=== PATIENT | female | born 1990 | race Caucasian/White ===

== ENCOUNTER 2022-02-26 09:13 | Emergency (ER) | payer SELFPAY ==
[2022-02-26] VITALS (16 sets, daily range): BP systolic 108–130; BP diastolic 60–83; PULSE 70–109; RESP 16–19; TEMP 36.7–39.3; O2SAT 95–99; BMI 25.1
[2022-02-26 09:45] LABS: Apearance,Urine Cloudy (Clear); Bilirubin,Urine Negative (Negative); Blood, Urine Trace (Negative); Color,Urine Dark Yellow (Yellow); Glucose,Urine (UA) Negative (Negative); Ketones,Urine Negative (Negative); Protein,Urine Trace (Negative)
[2022-02-26 09:46] LABS: UTC Leukocyte Esterase,Urine 3+ (Negative); UTC Nitrate,Urine Positive (Negative); Urobilinogen,Urine 0.2 EU/dl (0.2)
--- NOTE | 2022-02-26 09:51 | HMH.EDUTC ---
[facility] [place] Clinical Impression: Flank pain Disposition: Xfer Short-Term Hosp Condition on Discharge: Fair Instructions: DI for Urinary Tract Infection (UTI), DI for Urinary Tract Infection in Children Referrals: Provider,Referral, [Primary Care Provider] - Forms: Transfer Record - ED Time of Disposition: 09:57 Medical Decision Making - Davide Inquiry Pt receiving controlled substance: No Davide was queried for this patient: No Vital Signs: 02/26/22 09:13 02/26/22 10:22 02/26/22 10:30 Temperature 98.7 F 98.5 F Temperature Source Oral Oral Pulse Rate 79 Pulse Rate [Radial] 78 73 Respiratory Rate 19 16 Blood Pressure 123/77 Blood Pressure [Right Arm] 114/78 121/76 Blood Pressure Mean 93 Blood Pressure Mean [Right Arm] 90 91 Blood Pressure Source [Right Arm] Automatic Cuff Automatic Cuff Blood Pressure Position [Right Arm] Sitting 02 Sat by Pulse Oximetry 99 98 97 Oxygen Delivery Method Room Air Room Air 02/26/22 11:00 02/26/22 11:30 02/26/22 12:00 Temperature Temperature Source Pulse Rate 72 78 74 Pulse Rate [Radial] Respiratory Rate 17 Blood Pressure 112/70 110/67 117/72 Blood Pressure [Right Arm] Blood Pressure Mean 84 78 87 Blood Pressure Mean [Right Arm] Blood Pressure Source [Right Arm] Blood Pressure Position [Right Arm] 02 Sat by Pulse Oximetry 98 99 99 Oxygen Delivery Method 02/26/22 12:30 02/26/22 13:45 02/26/22 13:47 Temperature Temperature Source Pulse Rate 74 77 73 Pulse Rate [Radial] Respiratory Rate Blood Pressure 108/70 L 122/78 121/74 Blood Pressure [Right Arm] Blood Pressure Mean 80 96 Blood Pressure Mean [Right Arm] Blood Pressure Source [Right Arm] Blood Pressure Position [Right Arm] 02 Sat by Pulse Oximetry 99 98 97 Oxygen Delivery Method 02/26/22 15:08 02/26/22 16:09 02/26/22 16:30 Temperature 98.0 F 102.7 F H Temperature Source Oral Oral Pulse Rate 109 H 104 H Pulse Rate [Radial] Respiratory Rate 18 18 Blood Pressure 112/60 110/60 Blood Pressure [Right Arm] Blood Pressure Mean 72 72 Blood Pressure Mean [Right Arm] Blood Pressure Source [Right Arm] Blood Pressure Position [Right Arm] 02 Sat by Pulse Oximetry 95 96 Oxygen Delivery Method Room Air Room Air 02/26/22 17:00 02/26/22 17:30 02/26/22 18:00 Temperature 100.6 F H Temperature Source Oral Pulse Rate 104 H 104 H 94 H Pulse Rate [Radial] Respiratory Rate 18 Blood Pressure 109/64 L 130/65 127/72 Blood Pressure [Right Arm] Blood Pressure Mean 73 84 90 Blood Pressure Mean [Right Arm] Blood Pressure Source [Right Arm] Blood Pressure Position [Right Arm] 02 Sat by Pulse Oximetry 97 97 98 Oxygen Delivery Method Room Air Room Air 02/26/22 18:36 Temperature 100.1 F H Temperature Source Oral Pulse Rate 93 H Pulse Rate [Radial] Respiratory Rate 18 Blood Pressure 121/70 Blood Pressure [Right Arm] Blood Pressure Mean Blood Pressure Mean [Right Arm] Blood Pressure Source [Right Arm] Blood Pressure Position [Right Arm] 02 Sat by Pulse Oximetry Oxygen Delivery Method Room Air - Lab Data Lab Results 02/26/22 09:30: Urine HCG, Qual Negative 02/26/22 09:30: Urine Color Yellow, Urine Appearance Clear, Urine pH 6.5, Ur Specific [place] 1.020, Urine Protein Trace, Urine Glucose (UA) Negative, Urine Ketones Negative, Urine Blood Trace-i, Urine Nitrate Positive, Urine Bilirubin Negative, Urine Urobilinogen 0.2, Ur Leukocyte Esterase 3+ A, Urine RBC Occasional, Urine WBC Tntc, Ur Squamous Epith Cells 3-5, Urine Bacteria 4+, Urine Mucus Trace 02/26/22 09:38: Urine Color Dark yellow, Urine Appearance Cloudy, Urine pH 7.0, Ur Specific [place] 1.020, Urine Protein Trace, Urine Glucose (UA) Negative, Urine Ketones Negative, Urine Blood Trace, Urine Nitrate Positive A, Urine Bilirubin Negative, Urine Urobilinogen 0.2, Ur Leukocyte Esterase 3+ A 02/26/22 10:20: WBC 9.4, RBC 4.07 L, Hgb 11
--- NOTE | 2022-02-26 10:11 | CT_ITS ---
FINAL REPORT TECHNIQUE: Thin section axial images were obtained from the lung bases to the pubic symphysis without IV contrast. CLINICAL HISTORY: left flank pain, 6 weeks post FINDINGS: There are small, left greater than right pleural effusions. There is a lower lobe ground-glass opacity favored to be atelectasis although pneumonia is not excluded. The unenhanced liver is homogeneous. The gallbladder is present. The spleen, adrenal glands and pancreas are without acute abnormality. There is no hydronephrosis or renal stone in the right kidney. The left kidney is enlarged. There is left hydronephrosis and left perinephric stranding. There is air within the left renal collecting system concerning for gas producing infection. There is high density material at the left UPJ with an atypical appearance for stones, although a stone is not excluded. There is no evidence of small bowel obstruction. The appendix is normal. GI tract is without acute abnormality. There is no lymphadenopathy or ascites. The uterus is normal in size. There is no abnormal adnexal mass. No acute osseous abnormality is identified. IMPRESSION: Enlarged left kidney with hydronephrosis and left perinephric stranding. Air within the left renal collecting system raises concern for gas-forming infection/emphysematous pyelonephritis. Stone and possible debris at the left UPJ. Lower lobe ground-glass opacity favored to be atelectasis although pneumonia is not excluded. Bilateral pleural effusions. Reviewed, Interpreted and Dictated by Julisa Martin MD Transcribed by Emily Barnett Authenticated and [facility]
--- NOTE | 2022-02-26 10:22 | PC.NURSE ---
iv started labs sent
--- NOTE | 2022-02-26 10:25 | HMH.EDABDPAI ---
ED Disposition Clinical Impression: Flank pain Disposition: Xfer Short-Term Hosp Condition on Discharge: Good Referrals: Provider,Referral, [Primary Care Provider] - - Critical Care Critical Care Time: No Attestation: On 02/26/22, the high probability of a clinically significant, sudden or life threatening deterioration of the following system(s) required my full and direct attention, intervention and personal management. The time I documented below is in addition to time spent performing reported procedures but includes the following listed in this critical care notation. Medical Decision Making - Medical Records Medical records reviewed: Yes: I reviewed the patient's medical records. - Davide Inquiry Pt receiving controlled substance: No Vital Signs: 02/26/22 09:13 02/26/22 10:22 02/26/22 10:30 Temperature 98.7 F 98.5 F Temperature Source Oral Oral Pulse Rate 79 Pulse Rate [Radial] 78 73 Respiratory Rate 19 16 Blood Pressure 123/77 Blood Pressure [Right Arm] 114/78 121/76 Blood Pressure Mean 93 Blood Pressure Mean [Right Arm] 90 91 Blood Pressure Source [Right Arm] Automatic Cuff Automatic Cuff Blood Pressure Position [Right Arm] Sitting 02 Sat by Pulse Oximetry 99 98 97 Oxygen Delivery Method Room Air Room Air 02/26/22 11:00 02/26/22 11:30 02/26/22 12:00 Temperature Temperature Source Pulse Rate 72 78 74 Pulse Rate [Radial] Respiratory Rate 17 Blood Pressure 112/70 110/67 117/72 Blood Pressure [Right Arm] Blood Pressure Mean 84 78 87 Blood Pressure Mean [Right Arm] Blood Pressure Source [Right Arm] Blood Pressure Position [Right Arm] 02 Sat by Pulse Oximetry 98 99 99 Oxygen Delivery Method 02/26/22 12:30 02/26/22 13:45 02/26/22 13:47 Temperature Temperature Source Pulse Rate 74 77 73 Pulse Rate [Radial] Respiratory Rate Blood Pressure 108/70 L 122/78 121/74 Blood Pressure [Right Arm] Blood Pressure Mean 80 96 Blood Pressure Mean [Right Arm] Blood Pressure Source [Right Arm] Blood Pressure Position [Right Arm] 02 Sat by Pulse Oximetry 99 98 97 Oxygen Delivery Method 02/26/22 15:08 Temperature 98.0 F Temperature Source Oral Pulse Rate Pulse Rate [Radial] Respiratory Rate Blood Pressure Blood Pressure [Right Arm] Blood Pressure Mean Blood Pressure Mean [Right Arm] Blood Pressure Source [Right Arm] Blood Pressure Position [Right Arm] 02 Sat by Pulse Oximetry Oxygen Delivery Method - Lab Data Lab Results 02/26/22 09:30: Urine HCG, Qual Negative 02/26/22 09:30: Urine Color Yellow, Urine Appearance Clear, Urine pH 6.5, Ur Specific [place] 1.020, Urine Protein Trace, Urine Glucose (UA) Negative, Urine Ketones Negative, Urine Blood Trace-i, Urine Nitrate Positive, Urine Bilirubin Negative, Urine Urobilinogen 0.2, Ur Leukocyte Esterase 3+ A, Urine RBC Occasional, Urine WBC Tntc, Ur Squamous Epith Cells 3-5, Urine Bacteria 4+, Urine Mucus Trace 02/26/22 09:38: Urine Color Dark yellow, Urine Appearance Cloudy, Urine pH 7.0, Ur Specific [place] 1.020, Urine Protein Trace, Urine Glucose (UA) Negative, Urine Ketones Negative, Urine Blood Trace, Urine Nitrate Positive A, Urine Bilirubin Negative, Urine Urobilinogen 0.2, Ur Leukocyte Esterase 3+ A 02/26/22 10:20: WBC 9.4, RBC 4.07 L, Hgb 11.5 L, Hct 36.5 L, MCV 89.5, MCH 28.2, MCHC 31.5 L, RDW 12.8, Plt Count 439 H, MPV 7.6, Neut % (Auto) 85.6 H, Lymph % (Auto) 8.0 L, [place] % (Auto) 5.8, Eos % (Auto) 0.4, Baso % (Auto) 0.2, Neut # (Auto) 8.0 H, Lymph # (Auto) 0.8, [place] # (Auto) 0.5, Eos # (Auto) 0.0, Baso # (Auto) 0.0, Total Counted 100, Neutrophils % (Manual) 86 H, Lymphocytes % (Manual) 5 L, Monocytes % (Manual) 9, Platelet Estimate Slight increase, RBC Morphology Normal 02/26/22 10:20: Sodium 139, Potassium 4.1, Chloride 103, Carbon Dioxide 30, Anion Gap 10.1, BUN 17, Creatinine 0.80, Estimated Creat Clear 111, Estimated GFR 84, Est GFR ( Amer) 102, Glucos
--- NOTE | 2022-02-26 10:30 | PC.NURSE ---
verified with hilario in lab they do have a urine specimen up there for pt. notified her I'm adding another order
--- NOTE | 2022-02-26 10:45 | HMH.ITSTN ---
WAITING ON URINE TEST AT THIS TIME FOR CT SCAN
[2022-02-26 10:50] LABS: Urine Pregnancy, HCG Qual. Negative (Negative)
--- NOTE | 2022-02-26 11:08 | PC.NURSE ---
pt to CT at this time
--- NOTE | 2022-02-26 11:12 | PC.NURSE ---
Pt return from CT at this time.
[2022-02-26 11:20] LABS: Microscopic, Urine URINE MICROSCOPIC (MICROSCOPIC)
[2022-02-26 11:21] LABS: Basophils % 0.2 % (0.1-2.0); Eosinophils % 0.4 % (0.1-12.0); Hematocrit 36.5 % (37.0-47.0); Hemoglobin 11.5 g/dL (12.2-16.2); Lymphocytes # 0.8 K/mm3 (0.7-4.5); Mean Corpuscular HGB Conc 31.5 g/dL (31.8-35.4); Mean Corpuscular Hemoglobin 28.2 pg (27.0-31.2); Mean Corpuscular Volume 89.5 fl (81-99); Mean Platelet Volume 7.6 fl (7.4-10.4); Monocytes # 0.5 K/mm3 (0.1-1.0); Monocytes % 5.8 % (1.7-9.3); Neutrophils % 85.6 % (37.0-80.0); Platelet Count 439 K/mm3 (142-424); Red Blood Count 4.07 M/mm3 (4.20-5.40); Red Cell Distribution Width 12.8 % (11.5-17.5); White Blood Count 9.4 K/mm3 (4.8-10.8)
[2022-02-26 11:23] LABS: Chloride 103 mmol/L (98-107); Potassium 4.1 mmoL/L (3.5-5.1); Sodium 139 mmol/L (136-145)
[2022-02-26 11:24] LABS: MANUAL DIFFERENTIAL MANUAL DIFFERENTIAL (MANUAL DIFF)
[2022-02-26 11:25] LABS: Blood Urea Nitrogen 17 mg/dl (7-17)
[2022-02-26 11:26] LABS: Alanine Aminotransferase 30 U/L (12-78); Albumin/Globulin Ratio 1.2 (1.1-1.8); Alkaline Phosphatase 77 U/L (38-126); Anion Gap 10.1 mEq/L (5-15); Aspartate Amino Transferase 38 U/L (14-36); Bilirubin,Total 0.5 mg/dl (0.2-1.3); Calcium 8.8 mg/dl (8.4-10.2); Carbon Dioxide 30 mmol/L (22.0-30.0); Creatinine Clearance Estimated 111 mL/min (50-200); Estimated Glomerular Filt Rate 84 ml/min (>60); GFR (African American) 102 ML/MIN (>60); Globulin 3.3 g/dL (1.3-3.2); Glucose 93 mg/dl (74-100); Total Protein,Serum 7.3 g/dl (6.3-8.2)
[2022-02-26 11:47] LABS: Appearance,Urine CLEAR (Clear); Bilirubin,Urine Negative (Negative); Blood, Urine TRACE-I (Negative); Color,Urine YELLOW (Yellow); Glucose,Urine (UA) Negative (Negative); Ketones,Urine Negative (Negative); Leukocyte Esterase,Urine 3+ (Negative); Nitrate,Urine POSITIVE (Negative); PH,Urine 6.5 (5.0-8.5); Protein,Urine TRACE (Negative); Urobilinogen,Urine 0.2 EU/dl (0.2)
[2022-02-26 11:49] LABS: Bacteria,Urine 4+ /lpf; Mucus,Urine Trace /lpf; RBC,Urine Occasional #/hpf (0-3); WBC,Urine TNTC #/hpf (0-3)
[2022-02-26 11:51] LABS: Lymphocytes % 5 % (10-50); Monocytes % 9 % (2-9); Neutrophils % 86 % (42-76); Platelet Estimate Slight Increase; RBC Morphology Normal; Total Cells Counted 100
--- NOTE | 2022-02-26 12:09 | PC.NURSE ---
contacted radiology to check on status of pt Ct, staff states [facility] is in reading pt CT at this time
--- NOTE | 2022-02-26 12:13 | PC.NURSE ---
updated pt on CT results status at this time.
--- NOTE | 2022-02-26 12:14 | PC.NURSE ---
asked ER about antibiotics for pt Urine results, DARY CHAPA will reviews pt labs at this time
--- NOTE | 2022-02-26 12:44 | PC.NURSE ---
contacted radiology about CT results, spoke with Gokul, states they area gonna try to print off a preliminary report and send it down to us
--- NOTE | 2022-02-26 13:15 | PC.NURSE ---
pt updated with POC
--- NOTE | 2022-02-26 13:34 | PC.NURSE ---
Called [facility] center to check and see if [place] or [facility] have Urology electronics engineer at this time; awaiting for call back
--- NOTE | 2022-02-26 13:49 | PC.NURSE ---
contacting pharmacy r/t pt is breast feeding and pt is receiving IV antibiotics. Reports clindamycin has a half like for 3 hours, recommends pt pump/dump until tonight.
--- NOTE | 2022-02-26 14:08 | PC.NURSE ---
megan at the bedside instructing pt on how to use manual breast pump
--- NOTE | 2022-02-26 14:14 | PC.NURSE ---
Addendum entered by Sofia Souza RN 02/26/22 14:18: ER aware of pt mother reporting pt is strictly breastfed and does not take a bottle well without gagging. DARY CHAPA stated to call pharmacy to see if another antibiotic would be safer for mother. Spoke with Frieda he reviewed literature and stated clindamycin would be a safer antibiotic as fas as possible side effects for infant. Notified pt that I have spoken with pharmacist and he states clindamycin is the safer antibiotic choice regarding possible side effects for her infant. ER notified pt is pumping at this time prior to me starting clindamycin IV, pt has been educated on the recommended time of when safe to breastfeed infant after clindamycin, pt verbalized understanding. Have offered pt bottles, formula and syringes to assist her to feed infant if necessary. Pt reports she is willing to try but is unsure if infant will take a bottles, states she will try and see. Original Note: per frieda in pharmacy recommends pt not nurse infant for approx 12 hours after dose of clindamycin. Pt reports her infant does not take bottle well. Frieda in pharmacy states pts would be at risk for GI upset, depletion of good bacteria in intestines, diarrhea that may become severe and blood in stool. Risks verbalized to pt. Pt just nursed her infant, I have given pt a manual pump in order to try and collect breastmilk for her infant prior to starting antibiotics (pt was in agreeance with that plan). Pt has manual pump at bedside now, will start antibiotics when pt is done pumping.
--- NOTE | 2022-02-26 14:34 | PC.NURSE ---
lab called for blood culture collection
--- NOTE | 2022-02-26 14:40 | PC.NURSE ---
Spoke with [facility] call center again and they report that [facility] do not have urology human resources operations director today. They have reached out to [facility] and are waiting for the urologist to get out of surgery and give them a call back regarding this patient
--- NOTE | 2022-02-26 14:51 | PC.NURSE ---
per ER pt okay to eat and drink at this time, pt requesting something to drink. Pt and given water, tray ordered for them.
--- NOTE | 2022-02-26 15:32 | PC.NURSE ---
[facility], Dr Pfeiffer is no longer avionics mechanic for Urology tonight and will no tbe accepting any transfers. Attempting to contact [facility].
--- NOTE | 2022-02-26 15:38 | PC.NURSE ---
DARY CHAPA speaking with Dr. Mcdonald with MDs for possible patient transfer
--- NOTE | 2022-02-26 15:39 | PC.NURSE ---
[facility] called and states they are declining transfer because they do not have urology in house
--- NOTE | 2022-02-26 15:47 | PC.NURSE ---
DARY CHAPA speaking with Dr. Mcdonald at at this time.
--- NOTE | 2022-02-26 15:51 | PC.NURSE ---
Images powershared to [facility] at this time per kavon Gaines
--- NOTE | 2022-02-26 15:57 | PC.NURSE ---
pt accepted to [facility] ER per Dr. Mcdonald.
[2022-02-26 16:01] LABS: Coronavirus 19, PCR Not Detected (NotDetected); Influenza A, PCR Not Detected (NotDetected); Influenza B, PCR Not Detected (NotDetected)
--- NOTE | 2022-02-26 16:05 | PC.NURSE ---
contacted [facility] back at this time r/t pt ate approx 1 hour ago. Spoke with Estelle one of the nurses at the transfer center, states keep pt NPO and okay to go ahead and transfer.
--- NOTE | 2022-02-26 16:15 | PC.NURSE ---
notified [facility] of transport needed to [facility], states it will approx 2 hours on ambulance transport
--- NOTE | 2022-02-26 16:21 | PC.NURSE ---
ER MD gave verbal order for Tylenol 1000 mg PO one time dose for fever. Order repeated and verified with ER MD at this time.
--- NOTE | 2022-02-26 16:30 | PC.NURSE ---
updated pt on POC, waiting on EMS transport, will be approx 2 hours, pt and verbalized understanding. Notified PT of NPO status, pt states no needs at this time
--- NOTE | 2022-02-26 17:17 | PC.NURSE ---
report called to Katelynn Cat, RN at [facility] at this time notified her of Pt NPO since 1450 last temperature was taken while on phone with her 100.6, pt medicated with tylenol at 1623 pt is 6 weeks we are waiting on ambulance transport, will be approx 1 hour before a truck is available for transport
--- NOTE | 2022-02-26 17:52 | PC.NURSE ---
pt requesting if she can go POV instead of ambulance. Contacted [facility], spoke with Nandini RN at [facility] states they will not deny pt if she comes by POV. Reports okay to wrap pt in coban and leave it in if pt does decide to come by POV. notified ER of the above.
--- NOTE | 2022-02-26 18:09 | PC.NURSE ---
IV wrapped in coban pt called a batch mixing truck driver, states they will be here in approx 30 minutes, they are coming from [place]. Pt notified to remain NPO on trip to [facility]. Address of hospital given to pt/. report given to mily macedo and [facility]
== END 2022-02-26 18:38 | disposition short-term general hospital (02) ==
LOC: UTC 09:57 → ER 10:09
PROVIDERS: Nurse Practitioner; Emergency Provider Emergency Medicine
DX: R10.9 Unspecified abdominal pain (principal); R50.9 Fever, unspecified
CPT/HCPCS: 74176; 80053; 81001; 81003; 81025; 85007; 85025; 87040; 87086; 87088; 87186; 96365; 96366; 96367; 96375; 99284; C9803; J0696; J2405; U0003; U0005